=== PATIENT | male | born 2000 | race Caucasian/White ===

== ENCOUNTER 2024-06-27 20:03 | Emergency (ER) | payer OTHER ==
[~2024-06-27] VITALS: Ht 167.6 cm; Wt 63.5 kg
[2024-06-27 22:54] LABS: CORONAVIRUS COVID-19 AG Negative (NEGATIVE); INFLUENZA A AG Positive (NEGATIVE); INFLUENZA B AG Negative (NEGATIVE)
[2024-06-27] MEDS ORDERED: Acetaminophen 325 MG TABLET PO ONE (22:55)
== END 2024-06-27 23:37 | disposition home or self-care (01) ==
LOC: ER 20:03
PROVIDERS: Student in an Organized Health Care Education/Training Program
DX: J10.1 Influenza due to other identified influenza virus with other respiratory manifestations (principal)
CPT/HCPCS: 87428-QW; 99283; A9270

== ENCOUNTER 2024-06-30 18:23 | Emergency (ER) | payer OTHER ==
[~2024-06-30] VITALS: Ht 182.9 cm; Wt 72.6 kg
[2024-06-30] MEDS ORDERED: POLYTRIM EYE DR10 M1 RIGHTEYE (18:39)
== END 2024-06-30 18:38 | disposition home or self-care (01) ==
LOC: ER 18:23
DX: H10.9 Unspecified conjunctivitis (principal); Z79.899 Other long term (current) drug therapy
CPT/HCPCS: 99282